=== PATIENT | male | born 1955 | race Caucasian/White ===

== ENCOUNTER 2020-03-29 08:53 | Inpatient (IN) | payer BC, OTHER ==
[2020-03-27 01:07] LABS: GLYCOHEMOGLOBIN (HGB A1C) 5.5 % (4.8-5.6)
[2020-03-29] VITALS (26 sets, daily range): BP systolic 98–180; BP diastolic 48–90
[~2020-03-29] VITALS: Ht 175.3 cm; Wt 81.6 kg
[~2020-03-29 08:53] MED LIST: ASPIRIN325 PO; FISH OIL 1,0001 EAC9 PO; FUROSEMIDE 40 M40 MG PO; ISOSORBIDE DINI30 MG PO; LIPITOR 40 MG T40 M1 PO; METOPROLOL TART25 MG PO; NITROSTAT0.3 MG SUBLING; POTASSIUM CHLO20 ME2 PO; VITAMIN D325 MC1 PO
[2020-03-29 11:23] LABS: HEMATOCRIT 31.6 % (42.0-52.0); HEMOGLOBIN 11.1 gm/dL (14.0-18.0); MCH 32.2 pg (26.0-34.0); MCHC 35.2 g/dL (28.0-37.0); MCV 91.6 fL (80.0-100.0); RBC 3.45 mil/uL (4.50-6.00); RDW 14.5 % (10.5-14.5); WBC 10.9 thou/uL (4.0-11.0)
[2020-03-29 11:54] LABS: APTT 31.9 Seconds (24.5-32.8); FIBRINOGEN 234.6 mg/dL (210-360); PROTIME 14.1 Seconds (9.3-11.4)
[2020-03-29 11:57] LABS: INR 1.4
[2020-03-29 12:01] LABS: POC BE 1 mmol/L (-2.0 to +3.0); POC CA IONIZED 4.6 mg/dL (4.5-5.3); POC GLUCOSE 129 mg/dL (70-99); POC HCO3 25.2 mmol/L (22.0-26.0); POC HEMOGLOBIN 11.2 g/dL (14.0-18.0); POC POTASSIUM 5.1 mmol/L (3.5-5.1); POC SODIUM 135 mmol/L (136-145); POC pCO2 34.9 mmHg (35.0-45.0); POC pH 7.466 (7.360-7.450)
[2020-03-29 12:01] LABS: POC BE -1 mmol/L (-2.0 to +3.0); POC GLUCOSE 131 mg/dL (70-99); POC HCO3 23.4 mmol/L (22.0-26.0); POC HEMOGLOBIN 10.2 g/dL (14.0-18.0); POC POTASSIUM 5.1 mmol/L (3.5-5.1); POC SODIUM 129 mmol/L (136-145); POC pCO2 34.4 mmHg (35.0-45.0); POC pH 7.441 (7.360-7.450)
[2020-03-29 12:02] LABS: POC BE -1 mmol/L (-2.0 to +3.0); POC GLUCOSE 142 mg/dL (70-99); POC HCO3 24.3 mmol/L (22.0-26.0); POC HEMOGLOBIN 10.9 g/dL (14.0-18.0); POC POTASSIUM 4.4 mmol/L (3.5-5.1); POC SODIUM 133 mmol/L (136-145); POC pCO2 40.8 mmHg (35.0-45.0); POC pH 7.383 (7.360-7.450)
[2020-03-29 12:02] LABS: POC BE 3 mmol/L (-2.0 to +3.0); POC CA IONIZED 4.9 mg/dL (4.5-5.3); POC GLUCOSE 123 mg/dL (70-99); POC HCO3 27.7 mmol/L (22.0-26.0); POC HEMOGLOBIN 13.3 g/dL (14.0-18.0); POC POTASSIUM 4.3 mmol/L (3.5-5.1); POC SODIUM 135 mmol/L (136-145); POC pCO2 45.3 mmHg (35.0-45.0); POC pH 7.394 (7.360-7.450)
[2020-03-29 12:02] LABS: POC BE -3 mmol/L (-2.0 to +3.0); POC CA IONIZED 4.7 mg/dL (4.5-5.3); POC GLUCOSE 138 mg/dL (70-99); POC HEMOGLOBIN 11.2 g/dL (14.0-18.0); POC POTASSIUM 4.1 mmol/L (3.5-5.1); POC SODIUM 135 mmol/L (136-145); POC pCO2 43.1 mmHg (35.0-45.0); POC pH 7.336 (7.360-7.450)
[2020-03-29 12:43] LABS: BE(vivo) -6.3 mmol/L (-2 to +3); HCO3 19.3 mmol/L (22.0-26.0); PCO2 38.6 mmHg (35.0-45.0); PO2 90.3 mmHg (80.0-100.0); pH 7.317 (7.360-7.450); sO2 96.3 % (92.0-98.0)
[2020-03-29 12:50] LABS: HEMATOCRIT 35.8 % (42.0-52.0); HEMOGLOBIN 12.3 gm/dL (14.0-18.0); MCH 31.5 pg (26.0-34.0); MCHC 34.4 g/dL (28.0-37.0); MCV 91.6 fL (80.0-100.0); RBC 3.91 mil/uL (4.50-6.00); RDW 14.3 % (10.5-14.5); WBC 9.8 thou/uL (4.0-11.0)
[2020-03-29 12:54] LABS: CALCIUM 7.8 mg/dL (8.5-10.1); CREATININE 0.9 mg/dL (0.7-1.3); MAGNESIUM 2.3 mg/dL (1.8-2.4); POTASSIUM 3.9 mmol/L (3.5-5.1)
[2020-03-29 13:20] LABS: APTT 31.5 Seconds (24.5-32.8); INR 1.2; PROTIME 12.5 Seconds (9.3-11.4)
--- NOTE | 2020-03-29 14:04 | NUR ---
PT ARRIVED ON THE UNIT @ 1225 WITH THE ASSIST OF NURSING STAFF, DR PEREZ AND DR CHRISTINE. PT ARRIVED ON THE UNIT WITH PROPOFOL @ 40. INTIAL ABG ON THE UNIT CALLED TO DR CHRISTINE AT THE BEDSIDE, NO ORDERS RECIEVED. WILL CONTINUE TO MONITOR.
[2020-03-29 17:44] LABS: BE(vivo) -3.3 mmol/L (-2 to +3); HCO3 22.4 mmol/L (22.0-26.0); PO2 102.8 mmHg (80.0-100.0); pH 7.335 (7.360-7.450); sO2 97.4 % (92.0-98.0)
[2020-03-29 18:16] LABS: HCO3 22.7 mmol/L (22.0-26.0); PO2 90.4 mmHg (80.0-100.0); sO2 96.5 % (92.0-98.0)
[2020-03-29 18:45] LABS: BE(vivo) -4.1 mmol/L (-2 to +3); HCO3 21.2 mmol/L (22.0-26.0); PCO2 39.5 mmHg (35.0-45.0); PO2 92.7 mmHg (80.0-100.0); pH 7.348 (7.360-7.450); sO2 96.8 % (92.0-98.0)
[2020-03-30] VITALS (36 sets, daily range): BP systolic 114–158; BP diastolic 53–80
[2020-03-30 05:17] LABS: CALCIUM 8.1 mg/dL (8.5-10.1); CREATININE 0.8 mg/dL (0.7-1.3); MAGNESIUM 2.2 mg/dL (1.8-2.4); POTASSIUM 3.7 mmol/L (3.5-5.1)
[2020-03-30 05:26] LABS: HEMATOCRIT 35.2 % (42.0-52.0); MCH 31.5 pg (26.0-34.0); MCHC 34.1 g/dL (28.0-37.0); MCV 92.2 fL (80.0-100.0); RBC 3.82 mil/uL (4.50-6.00); RDW 14.9 % (10.5-14.5); WBC 10.6 thou/uL (4.0-11.0)
--- NOTE | 2020-03-30 07:06 | NUR ---
PT ORIENTED X4. PT ON/OFF CARDENE THROUGH OUT THE NIGHT PER CTS ORDER. PT C/O PAIN THROUGH OUT THE NIGHT, TREATED WITH PRN MEDS. PT TITRATED DOWN TO 6L HFNC, TOLERATING WELL. PT ABLE TO GET UP TO CHAIR WITH NO COMPLICATIONS. PT MAKING PROGRESS TOWARDS GOALS.
--- NOTE | 2020-03-30 08:40 | NUR ---
Nutrition: Received consult, post op CABG. Will followup to determine education needs when out of ICU, closer to D/C.
--- NOTE | 2020-03-30 08:55 | NUR ---
ALERT AND ORIENTED, SITTING UP IN THE CHAIR. VITALS STABLE AND DENIES AT THIS TIME. SWAN, A-LINE, CTs, TEMP PACEMAKER DOCUMENTED. TOLERATING DIET W/O NAUSEA. ANTHONY DRESSING INTACT, NO CONCERNS EXPRESSED AT THIS TIME. ENCOURAGED TO COUGH AND DEEP BREATHE AND USE OF I.S. PROGRESSING WELL TOWARDS POC GOALS.
--- NOTE | 2020-03-30 11:02 | NUR ---
PATIENT'S UPDATED OVER THE PHONE. FOINA DUNAWAY DC'D PER ORDER AND PACER WIRES CAPPED. PATIENT WORKED WITH P.T AND TOLERATED WELL. PATIENT THEN CALLED ON HIS CELL PHONE.
--- NOTE | 2020-03-30 13:01 | NUR ---
INITIAL ASSESSMENT: Received consult for discharge planning. CLAUDETTE reviewed chart. Pt was admitted from home due to CAD. Pt is s/p CABG. Pt currently in ICU. On 5L of O2. PT/OT evaluated pt earlier today. SW spoke with pt via phone. Introduced role of SW. Pt reports he lives at home with his in [place], [place]. Prior to admission, pt was independent with ADLs. No use of DME. No steps to enter the home. 12 steps down to the basement. Pt was not on O2 prior to admission. No hx of services or post-acute placement. Pt states he has down outpatient therapy in the past. Pt's PCP is Dr. Rosamaria Rivero with [facility]. No weekend discharge anticipated. CLAUDETTE is following to assist as needed with discharge planning.
--- NOTE | 2020-03-30 14:55 | NUR ---
PATIENT MEDICATED FOR PAIN WITH PRN PAIN MEDS A COUPLE OF TIMES, EXPRESSES CONCERNS OF CONSTIPATION AND INFORMED IS ALREADY SCHEDULED FOR STOOL SOFTNERS LATER TONIGHT.
[2020-03-31] VITALS (40 sets, daily range): BP systolic 119–179; BP diastolic 48–82
--- NOTE | 2020-03-31 03:40 | NUR ---
PT BEGAN GETTING HYPERTENSIVE WITH SYSTOLIC BP > 160 AT 0100. PRN NORVASC GIVEN AT 0112 WITHOUT IMPROVEMENT. CARDENE GTT STARTED AT 0145. CARDENE GTT TITRATED TO ACHIEVE SYSTOLIC < 160. O2 TITRATED UP FROM 4L TO 8L AT 0215 DUE TO DECREASE O2 SATURATION. WILL CONTINUE TO MONITOR.
[2020-03-31 04:49] LABS: CALCIUM 8.4 mg/dL (8.5-10.1); CREATININE 0.9 mg/dL (0.7-1.3); POTASSIUM 4.2 mmol/L (3.5-5.1)
[2020-03-31 05:00] LABS: HEMATOCRIT 34.4 % (42.0-52.0); HEMOGLOBIN 11.7 gm/dL (14.0-18.0); MCH 31.7 pg (26.0-34.0); MCHC 34.1 g/dL (28.0-37.0); RBC 3.7 mil/uL (4.50-6.00); RDW 14.9 % (10.5-14.5); WBC 10.4 thou/uL (4.0-11.0)
--- NOTE | 2020-03-31 11:44 | EKG ---
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
--- NOTE | 2020-03-31 11:49 | EKG ---
[facility] [place] [address] ELECTROCARDIOGRAM REPORT Name: HILDA WALLER Room #: 248-P ADM IN M.R.#: [id number] Admission: 03/29/20 Attend Phys: Venkatesh Harris MD Discharge: Date of : 53 Report #: [id number] THIS REPORT FOR: cc: FAM - Family physician unknown FAM - Family physician unknown Missael Gambino MD ~ THIS REPORT FOR: //name// [facility] Test Date: 2020-03-30 Test Time: 08:35:55 Pat Name: HILDA WALLER Department: Room: 248 Gender: M Assembler Gold Frame: Shirley SWEENEY : 1955 Requested By: Parish Gonzales Order Number: [id number] MD: Missael Gambino Measurements Intervals [place] Rate: 75 P: -19 CT: 129 QRS: 10 QRSD: 93 T: 46 QT: 402 QTc: 449 Interpretive Statements Sinus rhythm Inferior infarct, old No previous ECG available for comparison Electronically Signed On 03-31-2020 11:48:16 CDT by Missael Gambino [email or web address] <ELECTRONICALLY SIGNED> By: Missael Gambino MD 03/31/20 1148 0835 0835 Missael Gambino MD /MELISSA
--- NOTE | 2020-03-31 12:53 | NUR ---
ASSUMED CARE @ 0700 03/31/20, PT ASSESSMENTS AND VSS COMPLETE PER ICU PROTOCOL. DR CHRISTINE CALLED @ 0758 DUE TO INCREASE CARDENE NEEDS FOR BP AND INCREASE IN O2 DEMANDS, ORDERS RECIEVED AND EXECUTED. DR CHRISTINE CALLED BACK @ 0858 TO REPORT STAT CHEST XRAY ORDERS, NO ORDERS RECIEVED. FROM 10AM-11AM, PT MADE ONLY 10ML, FROM 11AM-12PM, PT MADE ONLY 10ML, DR CHRISTINE PAGED, ORDERS FOR ALBUMIN PLACED. DR CROFT @ BEDSIDE THIS AM, NO ORDERS RECIEVED. ROMERO UPDATED IN THE AM (0800) ABOUT CARE OF THE PT.
[2020-03-31 16:57] LABS: AMP/METHAMP Negative (Negative); BARBITURATES Negative (Negative); BENZODIAZEPINES Negative (Negative); COCAINE Negative (Negative); METHADONE Negative (Negative); OPIATES POSITIVE (Negative); PCP Negative (Negative)
[2020-03-31 19:57] LABS: FOLIC ACID 12.9 ng/mL (8.6-58.9)
[2020-04-01] VITALS (20 sets, daily range): BP systolic 119–165; BP diastolic 53–88
--- NOTE | 2020-04-01 00:04 | NUR ---
PT VERY IMPULSIVE TRYING TO GET OUT OF BED. ATIVAN GIVEN PER CWAW PROTOCAL SOME TREMORS PRESENT. WILL CONT TO MONITOR
--- NOTE | 2020-04-01 06:00 | NUR ---
PT AWAKE AND ALERT COOPERATIVE. UP TO CHAIR REMAINS ON 9 L HF NC O2 SAT 93 TO 94% LUNGS COARSE BILAT INCONT OF URINE EARLIER BUT IS VOIDING NOW IN SMALL AMTS. 220 CC CHEST TUBE DRG THIS SHIFT. EARLIER IN EVENING PT BECAME AGITATED AND TRYING TO GET OUT OF BED TREMORS PRESENT SEEING THINGS ATIVAN GIVEN PER CWAW PROTOCAL ART BP VERY POSITIONAL PRN MED GIVEN FOR BP > 160. WILL CONT TO MONITOR
--- NOTE | 2020-04-01 14:52 | NUR ---
ASSUMED CARE @ 0700 04/01/20, PT ASSESSMENTS AND VSS COMPLETE PER ICU PROTOCOL. DR CHRISTINE HER TO ROUND THIS AM, ORDERS RECIEVED AND EXECUTED. DR TRIMBLE THIS AM TO ROUND, RN TOLD TO NOT TREAT CIWA SCORE WITH THE 2MG DOSE DUE TO THE FACT THAT PT MAY BE OVER SENSITIVE. CHRISTI CALLED X3, CODE VERIFIED AND UPDATED ON STATUS EACH TIME.
--- NOTE | 2020-04-01 20:30 | NUR ---
INITIAL ASSESSMENT COMPLETED, PATIENT TRANSFERRED TO BEDSIDE COMMODE WITH STANDBY ASSISTANCE, MODERATE AMOUNT OF LOOSE STOOL. INCREASED PAIN WITH ACTIVITY, PAIN SCORE 2/10. SLIGHT TEMPERATURE INCREASE 100.8 FARENHEIT. O2 DECREASED FROM 5L TO 4L HIGHFLOW NASAL CANNULA, O2 SAT REMAINS ABOVE 90%. INCENTIVE SPIROMETER COMPLETED, 1000L. INCREASED SHORTNESS OF BREATH WITH ACTIVITY. PATIENT RESTING COMFORTABLY, PLAN DISCUSSED WITH PATIENT. ALSO SPOKE WITH (ROMERO WALLER) AND GAVE AN UPDATE ON PATIENT'S CONDITION. NO SIGN OF ACUTE DISTRESS NOTED AT THIS TIME. WILL CONTINUE TO MONITOR.
[2020-04-02] VITALS (15 sets, daily range): BP systolic 124–160; BP diastolic 51–89
[2020-04-02 04:50] LABS: HEMATOCRIT 34.5 % (42.0-52.0); HEMOGLOBIN 11.8 gm/dL (14.0-18.0); MCH 31.8 pg (26.0-34.0); MCHC 34.3 g/dL (28.0-37.0); MCV 92.7 fL (80.0-100.0); RBC 3.72 mil/uL (4.50-6.00); RDW 15.2 % (10.5-14.5); WBC 8.5 thou/uL (4.0-11.0)
[2020-04-02 05:21] LABS: CALCIUM 8.8 mg/dL (8.5-10.1); CREATININE 0.9 mg/dL (0.7-1.3); PHOSPHORUS 3.6 mg/dL (2.5-4.9); POTASSIUM 3.9 mmol/L (3.5-5.1)
--- NOTE | 2020-04-02 07:31 | EKG ---
[facility] [place] [address] ELECTROCARDIOGRAM REPORT Name: HILDA WALLER Room #: 248-P ADM IN M.R.#: [id number] Admission: 03/29/20 Attend Phys: Venkatesh Harris MD Discharge: Date of : 53 Report #: [id number] THIS REPORT FOR: cc: AMY - Family physician unknown FAM - Family physician unknown Mikhail Chen MD [facility] ~ THIS REPORT FOR: //name// [facility] Test Date: 2020-04-02 Test Time: 07:04:55 Pat Name: HILDA WALLER Department: Room: 248 Gender: M Supervisor Record Press: Shirley SWEENEY : 1955 Requested By: Narinder Moctezuma Order Number: [id number] MD: Mikhail Chen Measurements Intervals [place] Rate: 88 P: 20 AL: 193 QRS: 9 QRSD: 93 T: 49 QT: 371 QTc: 449 Interpretive Statements Sinus rhythm Nonspecific ST and T wave abnormality Inferior infarct, old Compared to ECG 03/30/2020 08:35:55 No significant change was found Electronically Signed On 04-02-2020 7:31:12 CDT by Mikhail Chen [email or web address] <ELECTRONICALLY SIGNED> By: Mikhail Chen MD, [facility] 04/02/20 0731 Mikhail Chen MD, [facility] /EPI
--- NOTE | 2020-04-02 13:07 | NUR ---
ASSUMED CARE OF PT AT 0700. IN BED FOR SEBAS TO REMOVE PLEURAL TUBE. MORE ALERT THAN YESTERDAY, NO ATIVAN GIVEN OVER NIGHT. PT UP AND DOWN TO BEDSIDE COMMODE SEVERAL TIMES WITHOUT RESULTS. LARGE BM AFTER 5TH TIME UP. TX ORDERS PLACED BY CTS.
--- NOTE | 2020-04-02 15:58 | NUR ---
SW reviewed chart spoke with hospitalist. Pt is POD #4 CABG. Pt remains on 3L of continuous O2. Pt with orders to transfer to CCU when a bed is available. CLAUDETTE spoke with pt via phone to provide update and discuss discharge. Pt is hopeful to get off the O2 prior to admission. Pt states he has done outpatient therapy in the past, and would prefer to do outpatient therapy if needed. SW is following to assist as needed with discharge planning.
--- NOTE | 2020-04-03 01:44 | NUR ---
ASSUMEPT CARE AT APPROX 2315.PT ALERT AND ORIENTED.PT DENIED PAIN SO FAR.INCISION ON HIS STERNUM C/D/I.PT C/O COUGHING,NO SPUTUM NOTED.PT CON ON FLUID RESTRICTION.PT STILL ON CIWA PROTOCOL,SCORED ZERO.PT RESTING ON HIS BED AT THIS TIME.FALL PRECAUTIONS IN PLACE,CALL LIGHT WITHIN REACH.
[2020-04-03 05:04] VITALS: BP 132/56
[2020-04-03 08:14] VITALS: BP 125/51
[2020-04-03] MEDS ORDERED: PACERONE 200 M200 M1 PO (11:49)
[2020-04-03] MEDS ORDERED: BYSTOLIC10 MG PO (11:49)
[2020-04-03] MEDS ORDERED: BENICAR20 MG PO (11:50)
[2020-04-03] MEDS ORDERED: ADULT LOW DOSE81 MG PO (11:50)
[2020-04-03] MEDS ORDERED: VITAMIN B-1100 M2 PO (11:52)
[2020-04-03 12:14] VITALS: BP 120/59
[2020-04-03] MEDS ORDERED: FERREX 150 PLU1 EAC1 PO (12:27)
--- NOTE | 2020-04-03 13:23 | NUR ---
patient to dc home today and needs HH at [place]. Sp with as patient does not answer phones in rooms. reports no prefernce of HH agency. Dc [employer] planners to assist
[2020-04-03 13:29] VITALS: BP 120/59
--- NOTE | 2020-04-03 14:34 | NUR ---
PT CARE ASSUMED APPROX 0700. ASSESSMENTS CHARTED. PT DENIED PAIN AND SOA. VSS. UP WITH STEADY GAIT. DISCHARGED AT THIS TIME. PT COMPLETED DISCHARGE EDUCATION WITH BLAIR WEBBER AND REINFORCED BY THIS NURSE. PT AND SPOUSE DENY QUESTIONS OR CONCERNS REGARDING POST HOSPITAL CARES OR ANTHONY DSG. ANTHONY DSG CHANGED AFTER PT SHOWERED THIS SHIFT PER BLAIR WEBBER ORDERS. DSG C/D/I. IV OUT, TELE OFF. PT ESCORTED OFF UNIT VIA WHEELCHAIR WITH NURSING STAFF.
--- NOTE | 2020-04-03 14:40 | NUR ---
FAXED REFERRAL TO [facility] SPOKE WITH JESSICA IN INTAKE SHE RECEIVED REFERRAL AND WILL NOT BE ABLE TO ACCEPT [facility] WITH PT'S INSURANCE.
[2020-04-03 15:36] VITALS: BP 120/59
--- NOTE | 2020-04-06 08:59 | O ---
[facility] [place] [address] OPERATIVE REPORT Name: HILDA WALLER Room #: 205-P [facility] IN M.R.#: [id number] Admission: 03/29/20 Attend Phys: Venkatesh Harris MD Discharge: 04/03/20 Date of : 53 Report #: [id number] THIS REPORT FOR: cc: AMY - Family physician unknown FAM - Family physician unknown Venkatesh Harris MD ~ CC: LUDWIN REYES unknown Venkatesh Harris DATE OF SERVICE: 03/29/2020 PREOPERATIVE DIAGNOSIS: Coronary artery disease. POSTOPERATIVE DIAGNOSIS: Coronary artery disease. OPERATION: Coronary artery bypass x 1 including left internal mammary artery to left anterior descending artery. SURGEON: Venkatesh Harris MD CLOTH NEUTRALIZER: AKBAR Weiss ANESTHESIA: General. INDICATIONS: The patient is a 64-year-old with an extensive history of peripheral vascular disease, seen for Dr. Haines at [place]. The patient had high-grade proximal left anterior descending stenosis seen. There was some visual abnormality in the circumflex and right coronaries, but IFR showed these were not hemodynamically significant. Left ventricular function is satisfactory. FINDINGS AND TECHNIQUE: After general anesthesia was established, exposure was obtained through median sternotomy. Left internal mammary artery was harvested from chest wall. Pericardial well was made. Cannulation sutures were placed. Heparin was given. Aorta was cannulated. Right atrium was cannulated. Cardioplegia needle was positioned in the aortic root. Retrograde cardioplegic catheter was placed in the coronary sinus. Cardiopulmonary bypass was established. Aorta was cross clamped. Antegrade and retrograde cardioplegia were given. Ice was poured in the pericardial well. The heart was stopped. During electromechanical arrest, the distal anastomosis was performed. An end-to-side anastomosis was made between the left internal mammary artery and the left anterior descending artery. Patency of this anastomosis was checked with the temperature technique and the Doppler. Warm retrograde cardioplegia was given followed by warm continuous blood through the coronary sinus. When [facility] [address] [place] [address] OPERATIVE REPORT Name: HILDA WALLER Room #: 205-P [facility] IN .R.#: [id number] Admission: 03/29/20 Attend Phys: Venkatesh Harris MD Discharge: 04/03/20 Date of : 53 Report #: [id number] this infusion was complete, the crossclamp was removed, de-airing maneuvers were performed. The anastomosis was inspected and found to be satisfactory. As the patient warmed, nice cardiac activity resumed. Chest tubes were brought through separate stab wounds and pacing wire was placed. When the patient was warm, he was weaned from cardiopulmonary bypass. Venous cannula was removed. Protamine was given, the aortic cannula was removed. Flow was measured again through the internal mammary artery with the Doppler. When hemostasis was satisfactory, chest was irrigated with antibiotic solution and closed in the usual fashion. The patient was taken to the Intensive Care Unit in good condition having tolerated the procedure well. All counts reported as correct. <ELECTRONICALLY SIGNED> By: Venkatesh Harris MD 04/06/20 0859 1306 1333 Venkatesh Harris MD /nt
== END 2020-04-03 14:33 | disposition home or self-care (01) | DRG 235 ==
LOC: PRE 08:53 → TBA 10:28 → PRE 10:36 → TBA 10:43 → ICU 10:43 → 2N 10:43 → PRE 10:47 → TBA 10:51 → PRE 10:59 → TBA 11:01 → ICU 12:26 → PRE 13:32 → TBA 14:14 → 2N 04-02 19:12
PROVIDERS: Physician Assistant; ADMIT Surgery Vascular Surgery; ATTEND Surgery Vascular Surgery
PROC: 05HY33Z Insertion of Infusion Device into Upper Vein, Percutaneous Approach (ICD-10-PCS; principal; 2020-03-29)
PROC: 02100Z9 Bypass Coronary Artery, One Artery from Left Internal Mammary, Open Approach (ICD-10-PCS; principal; 2020-03-29)
PROC: 5A1221Z Performance of Cardiac Output, Continuous (ICD-10-PCS; principal; 2020-03-29)
DX: I25.10 Atherosclerotic heart disease of native coronary artery without angina pectoris (principal); G92 Toxic encephalopathy; J98.11 Atelectasis; I10 Essential (primary) hypertension; E78.5 Hyperlipidemia, unspecified; I65.29 Occlusion and stenosis of unspecified carotid artery; I73.9 Peripheral vascular disease, unspecified; F17.210 Nicotine dependence, cigarettes, uncomplicated; F10.10 Alcohol abuse, uncomplicated; Z20.828 Contact with and (suspected) exposure to other viral communicable diseases; Z71.6 Tobacco abuse counseling; Z79.899 Other long term (current) drug therapy
CPT/HCPCS: 10078; 10081; 47000; 47001; 47002; 47297; 48888; 50010; 50409; 50456; 50498; 51301; 52131; 52259; 52287; 52314; 53327; 53358; 54118; 56455; 56524; 56525; 56526; 56527; 56528; 56531; 56534; 56760; 57093; 57116; 57167; 62110; 62950; 65003; 65047; 65090; 65120; 65135; 83006

== ENCOUNTER → 2020-07-10 | Outpatient (CLI) | payer BC, OTHER ==
[~2020-07-10] MED LIST changes: +ADULT LOW DOSE81 MG PO; +BENICAR20 MG PO; +BYSTOLIC10 MG PO; +FERREX 150 PLU1 EAC1 PO; +PACERONE 200 M200 M1 PO; +VITAMIN B-1100 M2 PO
== END ==
LOC: SJCVCIMAG 11:23
PROVIDERS: ATTEND Internal Medicine Cardiovascular Disease
DX: I70.203 Unspecified atherosclerosis of native arteries of extremities, bilateral legs (principal); Z72.0 Tobacco use

== ENCOUNTER → 2020-07-16 | Outpatient (CLI) | payer BC, OTHER ==
[~2020-07-16] VITALS: Ht 175.3 cm; Wt 85.3 kg
[~2020-07-16] MED LIST changes: +PLAVIX 300 MG300 M1 PO; +PLAVIX 75 MG TA75 MG PO; +VALIUM10 MG PO
[2020-07-16 07:34] VITALS: BP 157/66
[2020-07-16 07:40] LABS: HEMATOCRIT 42.9 % (42.0-52.0); HEMOGLOBIN 14.6 gm/dL (14.0-18.0); MCH 31.1 pg (26.0-34.0); MCHC 33.9 g/dL (28.0-37.0); MCV 91.8 fL (80.0-100.0); RBC 4.67 mil/uL (4.50-6.00); RDW 14.8 % (10.5-14.5); WBC 6.2 thou/uL (4.0-11.0)
[2020-07-16 07:48] LABS: CALCIUM 8.9 mg/dL (8.5-10.1); CREATININE 0.8 mg/dL (0.7-1.3); POTASSIUM 4.6 mmol/L (3.5-5.1)
[2020-07-16 10:30] VITALS: BP 130/51
== END | disposition home or self-care (01) ==
LOC: CATH 06:47
PROVIDERS: ATTEND Nuclear Medicine Nuclear Cardiology
DX: I70.213 Atherosclerosis of native arteries of extremities with intermittent claudication, bilateral legs (principal); I70.1 Atherosclerosis of renal artery; I10 Essential (primary) hypertension; E78.5 Hyperlipidemia, unspecified; I25.2 Old myocardial infarction; I25.10 Atherosclerotic heart disease of native coronary artery without angina pectoris; F17.210 Nicotine dependence, cigarettes, uncomplicated; Z98.890 Other specified postprocedural states; Z79.899 Other long term (current) drug therapy; Z95.1 Presence of aortocoronary bypass graft; Z79.82 Long term (current) use of aspirin; Z86.73 Personal history of transient ischemic attack (TIA), and cerebral infarction without residual deficits

== ENCOUNTER → 2020-07-19 | Outpatient (CLI) | payer BC, OTHER ==
[~2020-07-19] VITALS: Ht 175.3 cm; Wt 85.3 kg
[2020-07-19 07:41] VITALS: BP 159/67
== END | disposition home or self-care (01) ==
LOC: CATH 06:46
PROVIDERS: ATTEND Nuclear Medicine Nuclear Cardiology
DX: I70.212 Atherosclerosis of native arteries of extremities with intermittent claudication, left leg (principal); T82.898A Other specified complication of vascular prosthetic devices, implants and grafts, initial encounter; I10 Essential (primary) hypertension; E78.5 Hyperlipidemia, unspecified; F17.210 Nicotine dependence, cigarettes, uncomplicated; Z98.890 Other specified postprocedural states; Z79.899 Other long term (current) drug therapy; Z79.82 Long term (current) use of aspirin; Z95.1 Presence of aortocoronary bypass graft; Y83.8 Other surgical procedures as the cause of abnormal reaction of the patient, or of later complication, without mention of misadventure at the time of the procedure

== ENCOUNTER → 2020-11-07 | Outpatient (CLI) | payer OTHER ==
[~2020-11-07] MED LIST changes: +BYSTOLIC 5 MG5 M1 PO
== END ==
LOC: SJCVCIMAG 10:52
PROVIDERS: ATTEND Internal Medicine Cardiovascular Disease
DX: T82.858A Stenosis of other vascular prosthetic devices, implants and grafts, initial encounter (principal); I65.23 Occlusion and stenosis of bilateral carotid arteries; I70.201 Unspecified atherosclerosis of native arteries of extremities, right leg; I77.9 Disorder of arteries and arterioles, unspecified; I25.10 Atherosclerotic heart disease of native coronary artery without angina pectoris; I10 Essential (primary) hypertension; E78.00 Pure hypercholesterolemia, unspecified; I25.2 Old myocardial infarction; E78.5 Hyperlipidemia, unspecified; Z95.1 Presence of aortocoronary bypass graft; Z98.890 Other specified postprocedural states; Z95.828 Presence of other vascular implants and grafts; Z72.0 Tobacco use; Z82.49 Family history of ischemic heart disease and other diseases of the circulatory system; Y83.2 Surgical operation with anastomosis, bypass or graft as the cause of abnormal reaction of the patient, or of later complication, without mention of misadventure at the time of the procedure; Y92.89 Other specified places as the place of occurrence of the external cause

== ENCOUNTER → 2020-11-14 | Outpatient (CLI) | payer OTHER ==
[~2020-11-14] VITALS: Ht 175.3 cm; Wt 84.0 kg
[2020-11-14 07:25] LABS: HEMATOCRIT 42.1 % (42.0-52.0); HEMOGLOBIN 14.4 gm/dL (14.0-18.0); MCH 31.7 pg (26.0-34.0); MCHC 34.1 g/dL (28.0-37.0); MCV 92.9 fL (80.0-100.0); RBC 4.53 mil/uL (4.50-6.00); RDW 14.3 % (10.5-14.5)
[2020-11-14 07:29] VITALS: BP 159/74
[2020-11-14 07:40] LABS: CALCIUM 9.6 mg/dL (8.5-10.1); POTASSIUM 4.3 mmol/L (3.5-5.1)
== END | disposition home or self-care (01) ==
LOC: CATH 06:43
PROVIDERS: ATTEND Nuclear Medicine Nuclear Cardiology
DX: I70.211 Atherosclerosis of native arteries of extremities with intermittent claudication, right leg (principal); I25.10 Atherosclerotic heart disease of native coronary artery without angina pectoris; I12.9 Hypertensive chronic kidney disease with stage 1 through stage 4 chronic kidney disease, or unspecified chronic kidney disease; N18.9 Chronic kidney disease, unspecified; Z95.1 Presence of aortocoronary bypass graft; I65.23 Occlusion and stenosis of bilateral carotid arteries; E78.00 Pure hypercholesterolemia, unspecified; E78.5 Hyperlipidemia, unspecified; F17.200 Nicotine dependence, unspecified, uncomplicated; Z79.82 Long term (current) use of aspirin; Z79.899 Other long term (current) drug therapy; Z20.822 Contact with and (suspected) exposure to COVID-19; Z79.01 Long term (current) use of anticoagulants; R06.00 Dyspnea, unspecified